=== PATIENT | male | born 1955 | race Caucasian/White ===

== ENCOUNTER → 2020-09-29 | Outpatient (CLI) | payer OTHER ==
[~2020-09-29] MED LIST: ACTOS30 MG PO; BETAPACE120 MG PO; CORDARONE 200M200 MG PO; CYANOCOBAL1000 MCG/1 IM; ELIQUIS 5 MG TAB5 MG PO; ELIQUIS5 MG PO; HEARTBURN RELIE75 MG PO; JARDIANCE25 MG PO; LEXAPRO10 MG PO; LISINOPRIL5 MG PO; LORTAB 7.5-3251 EACH PO; METFORMIN HCL1000 MG PO; NORCO 5-325 TA1 EACH PO; PRAVACHOL40 MG PO; PRINIVIL5 MG PO; TAMBOCOR 100 M100 MG PO; TAPAZOLE5 MG PO; ZANTAC150 MG PO
== END ==
LOC: KOH-I 09-21 12:46 → MRI 14:55 → KOH-I 15:30
DX: M51.16 Intervertebral disc disorders with radiculopathy, lumbar region (principal); M51.37 Other intervertebral disc degeneration, lumbosacral region
CPT/HCPCS: 72148

== ENCOUNTER → 2020-11-22 | Outpatient (CLI) | payer OTHER | LOC: KOH-I 09:11 | DX: Z01.818 Encounter for other preprocedural examination (principal); M54.5 Low back pain; M51.16 Intervertebral disc disorders with radiculopathy, lumbar region | CPT/HCPCS: 72131 ==